=== PATIENT | male | born 1980 | race Caucasian/White ===

== ENCOUNTER 2018-10-23 13:59 | Inpatient (IN) | payer BC, OTHER ==
[~2018-10-23] VITALS: Ht 188 cm; Wt 182.8 kg
[2018-10-23] MEDS ORDERED: OMEP-110 PO (14:24)
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
[2018-10-23 14:37] LABS: BASOPHILS # (AUTO) 0.08 x10^3/uL (0-0.1); BASOPHILS % (AUTO) 1 % (0-1); EOSINOPHILS % (AUTO) 2 % (1-7); LYMPHOCYTES % (AUTO) 19 % (22-44); MD NO; MEAN CORPUSCULAR HEMOGLOBIN 30.6 pg (27.5-34.5); MEAN CORPUSCULAR VOLUME 92.6 fL (81-97); MEAN PLATELET VOLUME 11.2 fL (7.4-10.4); MONOCYTES # (AUTO) 0.75 x10^3/uL (0.2-0.8); MONOCYTES % (AUTO) 8 % (2-9); NEUTROPHILS # (AUTO) 7.07 x10^3/uL (1.8-6.8); NEUTROPHILS % (AUTO) 71 % (42-75); PLATELET COUNT 239 x10^3/uL (130-400); RED BLOOD COUNT 5.52 x10^6/uL (4.38-5.82); RED CELL DISTRIBUTION WIDTH 15.9 % (9.4-14.8)
[2018-10-23 14:46] LABS: ALBUMIN 3.2 g/dL (3.4-5.0); ANION GAP 9 mmol/L (5-15); CALCIUM 9.5 mg/dL (8.5-10.1); CHLORIDE 107 mmol/L (98-107)
[2018-10-23 14:49] LABS: ALANINE AMINOTRANSFERASE 171 U/L (12-78); ALKALINE PHOSPHATASE 464 U/L (45-117); CREATININE 0.91 mg/dL (0.7-1.3); TOTAL PROTEIN 8.1 g/dL (6.4-8.2)
[2018-10-23 14:51] LABS: BILIRUBIN,TOTAL 15.4 mg/dL (0.2-1.0)
--- NOTE | 2018-10-23 14:51 | NUR ---
LAB CALLED CRITICAL T-MARGUERITE OF 15.4. PROVIDER MADE AWARE.
[2018-10-23] MEDS ORDERED: SODIUM CHLORIDE FLUSH 10ML SYR IVF PRN (16:00)
[2018-10-23] MEDS ORDERED: GUAIFENESIN/DM 200-20MG, 10ML UDC PO PRN (16:30)
[2018-10-23] MEDS ORDERED: ONDANSETRON 2MG/ML, 2ML IVPush PRN (16:30)
[2018-10-23] MEDS ORDERED: hydrALAzine 20 MG/ML, 1ML IVPush PRN (16:30)
[2018-10-23] MEDS ORDERED: DOCUSATE 100 MG CAPSULE PO PRN (16:30)
[2018-10-23] MEDS ORDERED: ACETAMINOPHEN 325 MG TABLET PO PRN (16:30)
[2018-10-23] MEDS ORDERED: BUTALB/APAP/CAFFEINE 50MG/325MG/40MG PO PRN (16:30)
[2018-10-23] MEDS ORDERED: HYDROcodone/APAP 5/325 TABLET PO PRN (16:30)
[2018-10-23 16:48] LABS: CULTURE INDICATED? YES; MICROSCOPIC INDICATED
--- NOTE | 2018-10-23 16:56 | NUR ---
TEREZA FROM GI CONSULT. ERCP IS SCHEDULED FOR MONDAY AT 1400.
[2018-10-23] MEDS: CIPROFLOXACIN/PMX 400MG/200ML 200 ML IV SCH (17:00)
[2018-10-23 17:49] VITALS: BP 156/84
[2018-10-23 18:56] VITALS: BP 151/79
[2018-10-23] MEDS: NICOTINE 7 MG/24 HR PATCH.TD24 TD SCH (20:28)
[2018-10-23] MEDS: METRONIDAZOLE PMX 500MG/100ML 100 ML IV SCH (20:29)
[2018-10-23] MEDS: POTASSIUM CHLORIDE 20 MEQ TAB.ER.PRT PO SCH (20:29)
[2018-10-23] MEDS ORDERED: CALCIUM CARBONATE 500 MG TAB.CHEW PO PRN (22:00)
[2018-10-23] MEDS: OMEPRAZOLE 20 MG CAPSULE.DR PO SCH (22:12)
[2018-10-24 03:00] VITALS: BP 137/80
[2018-10-24] MEDS: METRONIDAZOLE PMX 500MG/100ML 100 ML IV SCH ×3 (03:58→19:59)
[2018-10-24] MEDS: POTASSIUM CHLORIDE 20 MEQ TAB.ER.PRT PO SCH (03:58)
[2018-10-24 05:58] LABS: BASOPHILS # (AUTO) 0.06 x10^3/uL (0-0.1); BASOPHILS % (AUTO) 1 % (0-1); EOSINOPHILS # (AUTO) 0.29 x10^3/uL (0-0.4); EOSINOPHILS % (AUTO) 4 % (1-7); LYMPHOCYTES # (AUTO) 1.82 x10^3/uL (1-3.4); LYMPHOCYTES % (AUTO) 25 % (22-44); MD NO; MEAN CORPUSCULAR HEMOGLOBIN 30.2 pg (27.5-34.5); MEAN CORPUSCULAR VOLUME 91.7 fL (81-97); MEAN PLATELET VOLUME 11.1 fL (7.4-10.4); MONOCYTES # (AUTO) 0.79 x10^3/uL (0.2-0.8); MONOCYTES % (AUTO) 11 % (2-9); NEUTROPHILS # (AUTO) 4.39 x10^3/uL (1.8-6.8); NEUTROPHILS % (AUTO) 60 % (42-75); PLATELET COUNT 213 x10^3/uL (130-400); RED BLOOD COUNT 5.05 x10^6/uL (4.38-5.82); RED CELL DISTRIBUTION WIDTH 16.3 % (9.4-14.8)
[2018-10-24 06:08] LABS: ALANINE AMINOTRANSFERASE 149 U/L (12-78); ALBUMIN 2.8 g/dL (3.4-5.0); ANION GAP 7 mmol/L (5-15); CALCIUM 8.9 mg/dL (8.5-10.1); CHLORIDE 105 mmol/L (98-107); CREATININE 0.93 mg/dL (0.7-1.3)
[2018-10-24 06:10] LABS: ALKALINE PHOSPHATASE 413 U/L (45-117); TOTAL PROTEIN 7.1 g/dL (6.4-8.2)
[2018-10-24 06:15] LABS: BILIRUBIN,TOTAL 16.1 mg/dL (0.2-1.0)
[2018-10-24 08:18] VITALS: BP 141/83
[2018-10-24] MEDS ORDERED: OMEPRAZOLE 20 MG CAPSULE.DR PO SCH (09:00)
[2018-10-24] MEDS: OMEPRAZOLE 20 MG CAPSULE.DR PO SCH ×2 (09:01→19:59)
[2018-10-24] MEDS: CIPROFLOXACIN/PMX 400MG/200ML 200 ML IV SCH ×2 (09:26→21:47)
[2018-10-24 14:28] VITALS: BP 147/93
[2018-10-24] MEDS: NICOTINE 7 MG/24 HR PATCH.TD24 TD SCH (16:39)
[2018-10-24 19:09] VITALS: BP 139/88
[2018-10-25] MEDS: DIPHENHYDRAMINE 25 MG CAPSULE PO PRN (00:40)
[2018-10-25 03:55] VITALS: BP 106/62
[2018-10-25] MEDS: METRONIDAZOLE PMX 500MG/100ML 100 ML IV SCH ×3 (04:36→20:01)
[2018-10-25 05:53] LABS: BASOPHILS # (AUTO) 0.05 x10^3/uL (0-0.1); BASOPHILS % (AUTO) 1 % (0-1); EOSINOPHILS # (AUTO) 0.37 x10^3/uL (0-0.4); EOSINOPHILS % (AUTO) 5 % (1-7); LYMPHOCYTES # (AUTO) 1.36 x10^3/uL (1-3.4); LYMPHOCYTES % (AUTO) 17 % (22-44); MD NO; MEAN CORPUSCULAR HEMOGLOBIN 31.2 pg (27.5-34.5); MEAN CORPUSCULAR HGB CONC 33.7 g/dL (33.2-36.2); MEAN CORPUSCULAR VOLUME 92.6 fL (81-97); MEAN PLATELET VOLUME 11.2 fL (7.4-10.4); MONOCYTES # (AUTO) 0.83 x10^3/uL (0.2-0.8); MONOCYTES % (AUTO) 10 % (2-9); NEUTROPHILS # (AUTO) 5.48 x10^3/uL (1.8-6.8); NEUTROPHILS % (AUTO) 68 % (42-75); PLATELET COUNT 202 x10^3/uL (130-400); RED BLOOD COUNT 4.86 x10^6/uL (4.38-5.82); RED CELL DISTRIBUTION WIDTH 16.5 % (9.4-14.8)
[2018-10-25 06:14] LABS: CHLORIDE 107 mmol/L (98-107)
[2018-10-25 06:31] LABS: ALANINE AMINOTRANSFERASE 144 U/L (12-78); ALBUMIN 2.7 g/dL (3.4-5.0); ALKALINE PHOSPHATASE 397 U/L (45-117); ANION GAP 5 mmol/L (5-15); CALCIUM 8.8 mg/dL (8.5-10.1); CREATININE 0.86 mg/dL (0.7-1.3); TOTAL PROTEIN 6.7 g/dL (6.4-8.2)
[2018-10-25 06:43] LABS: BILIRUBIN,TOTAL 15.6 mg/dL (0.2-1.0)
[2018-10-25 06:55] VITALS: BP 129/76
[2018-10-25] MEDS: OMEPRAZOLE 20 MG CAPSULE.DR PO SCH ×2 (09:00→20:01)
[2018-10-25] MEDS: CIPROFLOXACIN/PMX 400MG/200ML 200 ML IV SCH ×2 (10:05→21:45)
[2018-10-25] MEDS ORDERED: ALBUTEROL SULFATE 200 PUFFS/8.5 GR INH ONE (11:14)
[2018-10-25] MEDS ORDERED: hydrALAzine 20 MG/ML, 1ML IV PRN (13:00)
[2018-10-25] MEDS ORDERED: ALBUTEROL SULFATE 2.5 MG/3 ML NPPB PRN (13:00)
[2018-10-25] MEDS ORDERED: METOPROLOL 1 MG/ML, 5ML IV PRN (13:00)
[2018-10-25] MEDS ORDERED: LABETALOL 5MG/ML, 20ML IV PRN (13:00)
[2018-10-25] MEDS ORDERED: FENTANYL PF 100 MCG/2ML IV PRN (13:00)
[2018-10-25] MEDS ORDERED: FENTANYL PF 100 MCG/2ML ONE ×2 (14:08→15:43)
[2018-10-25] MEDS ORDERED: MIDAZOLAM 1 MG/ML, 2ML ONE (15:42)
[2018-10-25] MEDS ORDERED: ROCURONIUM 10MG/ML,5ML ONE (15:45)
[2018-10-25] MEDS ORDERED: ONDANSETRON 2MG/ML, 2ML ONE ×2 (15:45→16:22)
[2018-10-25] MEDS ORDERED: DEXAMETHASONE 4 MG/ML, 1ML ONE (15:45)
[2018-10-25] MEDS ORDERED: SUCCINYLCHOLINE 20 MG/ML, 10ML ONE (15:45)
[2018-10-25] MEDS ORDERED: CEFAZOLIN 1,000 MG ONE (15:45)
[2018-10-25] MEDS ORDERED: PROPOFOL 10 MG/ML, 20ML ONE (15:45)
[2018-10-25] MEDS ORDERED: NEOSTIGMINE 1 MG/ML, 10ML ONE (15:45)
[2018-10-25] MEDS ORDERED: GLYCOPYRROLATE 0.2MG/1ML, 5ML ONE (15:45)
[2018-10-25] MEDS ORDERED: OMNIPAQUE 350 MG/ML, 50 ML BOTTLE ONE (16:17)
[2018-10-25] MEDS ORDERED: ONDANSETRON 2MG/ML, 2ML IV PRN (16:30)
[2018-10-25] MEDS ORDERED: INDOMETHACIN 50 MG SUPP.RECT PR ONE (16:30)
[2018-10-25] MEDS ORDERED: LACTATED RINGERS 1,000 ML IVBOLUS ONE (18:00)
[2018-10-25 18:50] VITALS: BP 126/78
[2018-10-25] MEDS: NICOTINE 7 MG/24 HR PATCH.TD24 TD SCH (21:55)
[2018-10-26 01:32] VITALS: BP 130/71
[2018-10-26] MEDS: METRONIDAZOLE PMX 500MG/100ML 100 ML IV SCH ×2 (04:36→16:31)
[2018-10-26 05:34] LABS: MEAN CORPUSCULAR HEMOGLOBIN 30.5 pg (27.5-34.5); MEAN CORPUSCULAR HGB CONC 33.1 g/dL (33.2-36.2); MEAN CORPUSCULAR VOLUME 92.1 fL (81-97); MEAN PLATELET VOLUME 10.9 fL (7.4-10.4); PLATELET COUNT 229 x10^3/uL (130-400); RED BLOOD COUNT 4.87 x10^6/uL (4.38-5.82)
[2018-10-26 05:41] LABS: CHLORIDE 105 mmol/L (98-107)
[2018-10-26 05:48] LABS: ALANINE AMINOTRANSFERASE 130 U/L (12-78); ALBUMIN 2.8 g/dL (3.4-5.0); ALKALINE PHOSPHATASE 416 U/L (45-117); ANION GAP 7 mmol/L (5-15); BILIRUBIN,TOTAL 9.9 mg/dL (0.2-1.0); CREATININE 0.88 mg/dL (0.7-1.3); TOTAL PROTEIN 7.1 g/dL (6.4-8.2)
[2018-10-26 06:32] LABS: BASOPHILS # (AUTO) 0.03 x10^3/uL (0-0.1); BASOPHILS % (AUTO) 0 % (0-1); EOSINOPHILS # (AUTO) 0.03 x10^3/uL (0-0.4); EOSINOPHILS % (AUTO) 0 % (1-7); LYMPHOCYTES # (AUTO) 1.44 x10^3/uL (1-3.4); LYMPHOCYTES % (AUTO) 13 % (22-44); MD SCAN; MONOCYTES # (AUTO) 0.55 x10^3/uL (0.2-0.8); MONOCYTES % (AUTO) 5 % (2-9); NEUTROPHILS # (AUTO) 9.25 x10^3/uL (1.8-6.8); NEUTROPHILS % (AUTO) 82 % (42-75)
[2018-10-26 07:35] VITALS: BP 117/75
[2018-10-26] MEDS ORDERED: MAGNESIUM SULFATE PMX 2GM/50ML 50 ML IV ONE (08:30)
[2018-10-26 09:23] VITALS: BP 157/65
[2018-10-26] MEDS ORDERED: BUPIVACAINE/PF 0.25% ONE (10:04)
[2018-10-26] MEDS ORDERED: EPINEPHRINE 1 MG/ML, 1ML ONE (10:05)
[2018-10-26] MEDS: CIPROFLOXACIN/PMX 400MG/200ML 200 ML IV SCH ×2 (10:15→21:56)
[2018-10-26] MEDS ORDERED: MIDAZOLAM 1 MG/ML, 2ML ONE (11:47)
[2018-10-26] MEDS ORDERED: FENTANYL PF 250 MCG/5ML ONE (11:47)
[2018-10-26] MEDS ORDERED: ROCURONIUM 10MG/ML,5ML ONE (11:48)
[2018-10-26] MEDS ORDERED: SUCCINYLCHOLINE 20 MG/ML, 10ML ONE (11:48)
[2018-10-26] MEDS ORDERED: PROPOFOL 10 MG/ML, 20ML ONE (11:50)
[2018-10-26] MEDS ORDERED: FENTANYL PF 100 MCG/2ML ONE ×2 (12:28→13:17)
[2018-10-26] MEDS ORDERED: ONDANSETRON 2MG/ML, 2ML ONE ×2 (12:28)
[2018-10-26] MEDS ORDERED: DEXAMETHASONE 4 MG/ML, 1ML ONE ×2 (12:28)
[2018-10-26] MEDS ORDERED: MIDAZOLAM 1 MG/ML, 2ML IV PRN (12:30)
[2018-10-26] MEDS ORDERED: PROMETHAZINE 12.5 MG SUPP PR PRN (12:30)
[2018-10-26] MEDS ORDERED: EPHEDRINE 50 MG/ML, 1ML IVPush PRN (12:30)
[2018-10-26] MEDS ORDERED: ONDANSETRON 2MG/ML, 2ML IV PRN (12:30)
[2018-10-26] MEDS ORDERED: LABETALOL 5MG/ML, 20ML IV PRN (12:30)
[2018-10-26] MEDS ORDERED: OXYcodone 5 MG/5 ML ORAL.SOL UDC PO PRN (12:30)
[2018-10-26] MEDS ORDERED: PROMETHAZINE 25 MG/ML, 1ML IV PRN (12:30)
[2018-10-26] MEDS ORDERED: ONDANSETRON ODT 8 MG PO PRN (12:30)
[2018-10-26] MEDS ORDERED: ALBUTEROL SULFATE 2.5 MG/3 ML NPPB PRN (12:30)
[2018-10-26] MEDS ORDERED: DIAZEPAM 5 MG/ML, 2ML IVPush PRN (12:30)
[2018-10-26] MEDS ORDERED: MORPHINE SULFATE 4 MG/ML, 1ML IVPush PRN (12:30)
[2018-10-26] MEDS ORDERED: MEPERIDINE/PF 25MG/0.5ML IVPush PRN (12:30)
[2018-10-26] MEDS ORDERED: HALOPERIDOL 5 MG/ML IV PRN (12:30)
[2018-10-26] MEDS ORDERED: SUGAMMADEX 200 MG/2 ML IVPush ONE (12:57)
[2018-10-26] MEDS ORDERED: KETOROLAC 30 MG/1 ML ONE (13:00)
[2018-10-26] MEDS ORDERED: ACETAMINOPHEN 650 MG/20.3 ML UDC ONE (13:17)
[2018-10-26] MEDS ORDERED: MEPERIDINE/PF 25MG/ML,1ML ONE (13:17)
[2018-10-26] MEDS ORDERED: OXYcodone 5 MG/5 ML ORAL.SOL UDC ONE (13:17)
[2018-10-26] MEDS: FENTANYL PF 100 MCG/2ML IV PRN ×2 (13:27→13:36)
[2018-10-26] MEDS ORDERED: hydrALAzine 20 MG/ML, 1ML ONE (13:34)
[2018-10-26] MEDS ORDERED: HYDROmorphone 2 MG/ML, 1ML ONE (13:34)
[2018-10-26] MEDS: hydrALAzine 20 MG/ML, 1ML IV PRN ×2 (13:38→13:58)
[2018-10-26] MEDS: HYDROmorphone 2 MG/ML, 1ML IVPush PRN ×3 (13:42→13:56)
[2018-10-26 14:34] VITALS: BP 117/71
[2018-10-26] MEDS: HYDROcodone/APAP 5/325 TABLET PO PRN ×2 (16:31→17:52)
[2018-10-26] MEDS: NICOTINE 7 MG/24 HR PATCH.TD24 TD SCH (18:34)
[2018-10-26 18:53] VITALS: BP 168/101
[2018-10-26] MEDS: morphine SULFATE 10 MG/ML, 1ML IVPush PRN ×2 (18:58→21:58)
[2018-10-26 19:33] LABS: TROPONIN I < 0.015 ng/mL (0.000-0.045)
[2018-10-26 20:09] VITALS: BP_SYST 152; BP_SYST 94; BP_DIAS 60; BP_DIAS 85
[2018-10-26] MEDS: OMEPRAZOLE 20 MG CAPSULE.DR PO SCH (22:40)
[2018-10-26] MEDS: SIMETHICONE 125 MG CHEW TAB PO PRN (22:40)
[2018-10-27] MEDS: METRONIDAZOLE PMX 500MG/100ML 100 ML IV SCH ×3 (00:41→16:25)
[2018-10-27 01:19] VITALS: BP 188/107
[2018-10-27] MEDS: morphine SULFATE 10 MG/ML, 1ML IVPush PRN ×3 (01:23→08:21)
[2018-10-27 02:41] VITALS: BP 137/85
[2018-10-27 05:49] LABS: ALBUMIN 2.8 g/dL (3.4-5.0); ANION GAP 7 mmol/L (5-15); CALCIUM 8.7 mg/dL (8.5-10.1); CHLORIDE 104 mmol/L (98-107)
[2018-10-27 05:52] LABS: ALANINE AMINOTRANSFERASE 148 U/L (12-78); ALKALINE PHOSPHATASE 368 U/L (45-117); BILIRUBIN,TOTAL 8.7 mg/dL (0.2-1.0); CREATININE 0.75 mg/dL (0.7-1.3); TOTAL PROTEIN 7.1 g/dL (6.4-8.2)
[2018-10-27 05:57] LABS: BASOPHILS # (AUTO) 0.02 x10^3/uL (0-0.1); BASOPHILS % (AUTO) 0 % (0-1); EOSINOPHILS # (AUTO) 0.01 x10^3/uL (0-0.4); EOSINOPHILS % (AUTO) 0 % (1-7); LYMPHOCYTES # (AUTO) 1.76 x10^3/uL (1-3.4); LYMPHOCYTES % (AUTO) 11 % (22-44); MD NO; MEAN CORPUSCULAR HEMOGLOBIN 30.9 pg (27.5-34.5); MEAN CORPUSCULAR HGB CONC 33.1 g/dL (33.2-36.2); MEAN CORPUSCULAR VOLUME 93.2 fL (81-97); MEAN PLATELET VOLUME 11.2 fL (7.4-10.4); MONOCYTES # (AUTO) 1.12 x10^3/uL (0.2-0.8); MONOCYTES % (AUTO) 7 % (2-9); NEUTROPHILS # (AUTO) 13.22 x10^3/uL (1.8-6.8); NEUTROPHILS % (AUTO) 82 % (42-75); PLATELET COUNT 231 x10^3/uL (130-400); RED BLOOD COUNT 4.78 x10^6/uL (4.38-5.82); RED CELL DISTRIBUTION WIDTH 16.7 % (9.4-14.8)
[2018-10-27 06:42] VITALS: BP 134/80
[2018-10-27] MEDS: CIPROFLOXACIN/PMX 400MG/200ML 200 ML IV SCH ×2 (10:27→22:11)
[2018-10-27 12:31] VITALS: BP 137/95
[2018-10-27] MEDS: NICOTINE 7 MG/24 HR PATCH.TD24 TD SCH (13:47)
[2018-10-27] MEDS: SIMETHICONE 125 MG CHEW TAB PO PRN (15:17)
[2018-10-27] MEDS: HYDROcodone/APAP 5/325 TABLET PO PRN ×3 (15:17→23:13)
[2018-10-27 19:23] VITALS: BP 99/64
[2018-10-27] MEDS: OMEPRAZOLE 20 MG CAPSULE.DR PO SCH (21:05)
[2018-10-27] MEDS: DIPHENHYDRAMINE 25 MG CAPSULE PO PRN (22:11)
[2018-10-28] MEDS: METRONIDAZOLE PMX 500MG/100ML 100 ML IV SCH ×2 (00:36→08:30)
[2018-10-28 00:48] VITALS: BP 122/75
[2018-10-28] MEDS: SIMETHICONE 125 MG CHEW TAB PO PRN (04:50)
[2018-10-28] MEDS: HYDROcodone/APAP 5/325 TABLET PO PRN (05:12)
[2018-10-28 07:17] VITALS: BP 143/90
[2018-10-28] MEDS: LACTOBACILLUS CHEW TABLET PO SCH ×3 (09:00→21:44)
[2018-10-28] MEDS: CIPROFLOXACIN/PMX 400MG/200ML 200 ML IV SCH (10:00)
[2018-10-28 10:05] LABS: BASOPHILS # (AUTO) 0.02 x10^3/uL (0-0.1); BASOPHILS % (AUTO) 0 % (0-1); EOSINOPHILS # (AUTO) 0.17 x10^3/uL (0-0.4); EOSINOPHILS % (AUTO) 1 % (1-7); LYMPHOCYTES # (AUTO) 2.41 x10^3/uL (1-3.4); LYMPHOCYTES % (AUTO) 18 % (22-44); MD NO; MEAN CORPUSCULAR HEMOGLOBIN 31.2 pg (27.5-34.5); MEAN CORPUSCULAR HGB CONC 33.4 g/dL (33.2-36.2); MEAN CORPUSCULAR VOLUME 93.6 fL (81-97); MEAN PLATELET VOLUME 10.9 fL (7.4-10.4); MONOCYTES # (AUTO) 0.15 x10^3/uL (0.2-0.8); MONOCYTES % (AUTO) 1 % (2-9); NEUTROPHILS # (AUTO) 10.89 x10^3/uL (1.8-6.8); NEUTROPHILS % (AUTO) 80 % (42-75); PLATELET COUNT 270 x10^3/uL (130-400); RED BLOOD COUNT 4.83 x10^6/uL (4.38-5.82)
[2018-10-28 10:14] LABS: ALANINE AMINOTRANSFERASE 144 U/L (12-78); ALBUMIN 3.1 g/dL (3.4-5.0); ANION GAP 6 mmol/L (5-15); CHLORIDE 102 mmol/L (98-107); CREATININE 0.82 mg/dL (0.7-1.3)
[2018-10-28 10:16] LABS: ALKALINE PHOSPHATASE 360 U/L (45-117); BILIRUBIN,TOTAL 8.2 mg/dL (0.2-1.0); TOTAL PROTEIN 7.4 g/dL (6.4-8.2)
[2018-10-28] MEDS: ACETAMINOPHEN 325 MG TABLET PO SCH ×3 (10:30→21:45)
[2018-10-28 14:50] VITALS: BP 131/79
[2018-10-28] MEDS: metroNIDAZOLE 500 MG TABLET PO SCH ×2 (14:53→22:37)
[2018-10-28 18:51] VITALS: BP 148/74
[2018-10-28] MEDS: CIPROFLOXACIN 500 MG TABLET PO SCH (21:42)
[2018-10-28] MEDS: NICOTINE 7 MG/24 HR PATCH.TD24 TD SCH (21:42)
[2018-10-28] MEDS: OMEPRAZOLE 20 MG CAPSULE.DR PO SCH (21:43)
[2018-10-28] MEDS: DIPHENHYDRAMINE 25 MG CAPSULE PO PRN (22:37)
[2018-10-29 01:02] VITALS: BP 140/94
[2018-10-29] MEDS: HYDROcodone/APAP 5/325 TABLET PO PRN ×2 (01:06→08:30)
[2018-10-29] MEDS: ACETAMINOPHEN 325 MG TABLET PO SCH (04:30)
[2018-10-29 05:35] LABS: BASOPHILS # (AUTO) 0.07 x10^3/uL (0-0.1); BASOPHILS % (AUTO) 1 % (0-1); EOSINOPHILS % (AUTO) 2 % (1-7); LYMPHOCYTES # (AUTO) 3.17 x10^3/uL (1-3.4); LYMPHOCYTES % (AUTO) 25 % (22-44); MD NO; MEAN CORPUSCULAR HEMOGLOBIN 30.8 pg (27.5-34.5); MEAN CORPUSCULAR VOLUME 93.3 fL (81-97); MONOCYTES # (AUTO) 1.13 x10^3/uL (0.2-0.8); MONOCYTES % (AUTO) 9 % (2-9); NEUTROPHILS # (AUTO) 8.12 x10^3/uL (1.8-6.8); NEUTROPHILS % (AUTO) 64 % (42-75); PLATELET COUNT 225 x10^3/uL (130-400); RED BLOOD COUNT 4.47 x10^6/uL (4.38-5.82); RED CELL DISTRIBUTION WIDTH 16.4 % (9.4-14.8)
[2018-10-29 05:47] LABS: ALBUMIN 2.7 g/dL (3.4-5.0); CHLORIDE 101 mmol/L (98-107)
[2018-10-29] MEDS: metroNIDAZOLE 500 MG TABLET PO SCH (05:48)
[2018-10-29 05:52] LABS: ALANINE AMINOTRANSFERASE 130 U/L (12-78); ALKALINE PHOSPHATASE 294 U/L (45-117); ANION GAP 5 mmol/L (5-15); BILIRUBIN,TOTAL 6.7 mg/dL (0.2-1.0); CALCIUM 8.9 mg/dL (8.5-10.1); CREATININE 0.75 mg/dL (0.7-1.3); TOTAL PROTEIN 6.7 g/dL (6.4-8.2)
[2018-10-29 07:44] VITALS: BP 144/95
[2018-10-29] MEDS ORDERED: BISACODYL 10 MG SUPP PR SCH (08:00)
[2018-10-29] MEDS ORDERED: MAGNESIUM CITRATE 300ML ORAL SOL PO ONE (08:00)
[2018-10-29] MEDS: LACTOBACILLUS CHEW TABLET PO SCH (08:30)
[2018-10-29] MEDS: CIPROFLOXACIN 500 MG TABLET PO SCH (08:30)
[2018-10-29] MEDS ORDERED: METR500T PO (09:33)
[2018-10-29] MEDS ORDERED: ACID1TAB7 PO (09:33)
[2018-10-29] MEDS ORDERED: CIPR500T3 PO (09:33)
[2018-10-29] MEDS ORDERED: ACET325T26 PO (09:33)
[2018-10-29] MEDS ORDERED: HYDR-3240 PO (10:52)
== END 2018-10-29 11:03 | disposition home or self-care (01) | DRG 417 ==
LOC: OR 15:51 → EDIP 15:52 → OR 17:00 → 3NE 17:28 → DCLOUNGE 10-29 10:52
PROVIDERS: ADMIT Internal Medicine; ATTEND Internal Medicine
PROC: 0F7D8DZ Dilation of Pancreatic Duct with Intraluminal Device, Via Natural or Artificial Opening Endoscopic (ICD-10-PCS; 2018-10-25)
PROC: 0FCC8ZZ Extirpation of Matter from Ampulla of Vater, Via Natural or Artificial Opening Endoscopic (ICD-10-PCS; 2018-10-25)
PROC: 0F7C8ZZ Dilation of Ampulla of Vater, Via Natural or Artificial Opening Endoscopic (ICD-10-PCS; 2018-10-25)
PROC: BF141ZZ Fluoroscopy of Gallbladder, Bile Ducts and Pancreatic Ducts using Low Osmolar Contrast (ICD-10-PCS; 2018-10-25)
PROC: 0FT44ZZ Resection of Gallbladder, Percutaneous Endoscopic Approach (ICD-10-PCS; principal; 2018-10-26 11:30)
DX: K80.63 Calculus of gallbladder and bile duct with acute cholecystitis with obstruction (principal); E43 Unspecified severe protein-calorie malnutrition; Z68.43 Body mass index [BMI] 50.0-59.9, adult; E66.01 Morbid (severe) obesity due to excess calories; F12.10 Cannabis abuse, uncomplicated; F17.210 Nicotine dependence, cigarettes, uncomplicated; I10 Essential (primary) hypertension; J45.909 Unspecified asthma, uncomplicated; K21.9 Gastro-esophageal reflux disease without esophagitis; K59.00 Constipation, unspecified; Z83.3 Family history of diabetes mellitus; K82.8 Other specified diseases of gallbladder; Z88.6 Allergy status to analgesic agent; Z88.0 Allergy status to penicillin; E78.5 Hyperlipidemia, unspecified
CPT/HCPCS: 36415; 74181; 74330; 78226; 80053; 81001; 83690; 83735; 84100; 84484; 85025; 87086; 88304; 93005; 99285; C1729; G0378; J0171; J0690; J0744; J1100; J1170; J1885; J2175; J2250; J2405; J2704; J2710; J3010; J3490; Q9967; A9537; C1760; C1769; C1894; C2625; C9898; J0330; J0360; J2270; J3475; J7120; Q0163